=== PATIENT | female | born 1990 | race Caucasian/White ===

== ENCOUNTER 2020-12-25 15:05 | Inpatient (IN) ==
[2020-12-25] MEDS ORDERED: Ondansetron 4 MG/2 ML VIAL IVP PRN (17:53)
[2020-12-25] MEDS ORDERED: Naloxone 0.4 MG/ML INJ IVP PRN (17:53)
[2020-12-25 18:48] LABS: C-Reactive Protein 124 mg/L (Less than 10); Lactate Dehydrogenase 511 Units/L (140-271)
[2020-12-25] MEDS ORDERED: Remdesivir 200 MG in 0.9 % Sodium Chloride 100 ML IVPB ONE (21:00)
[2020-12-25] MEDS: *HR* Enoxaparin 40 MG/0.4 ML SYRINGE SQ SCH (21:32)
[2020-12-25] MEDS: Benzonatate 100 MG CAPSULE PO PRN (21:32)
[2020-12-26] MEDS ORDERED: Melatonin 3 MG TABLET PO ONE (03:00)
[2020-12-26 03:14] LABS: Basophils % 0.2 %; Hematocrit 37.2 % (35.3-44.9); Hemoglobin 11.3 g/dL (11.5-15.4); Immature Granulocytes % 0.4 % (0-4); Lymphocytes # 0.7 K/mcL (0.6-4.6); Lymphocytes % 14.7 %; Mean Corpuscular HGB Conc 30.4 g/dL (31.6-35.5); Mean Corpuscular Hemoglobin 26.3 pg (28.0-33.3); Mean Corpuscular Volume 86.7 fL (83.0-100.0); Mean Platelet Volume 9.7 fL (9.4-12.4); Monocytes # 0.5 K/mcL (0.0-1.3); Monocytes % 9.5 %; Platelet Count 384 K/mcL (140-400); Red Blood Count 4.29 M/mcL (3.82-4.97); Segmented Neutrophils % 75.2 %
[2020-12-26 03:18] LABS: Neutrophils # 3.8 K/mcL (1.6-8.9)
[2020-12-26 03:20] LABS: INR 1.1; Prothrombin Time 13.2 Seconds (9.4-12.1)
[2020-12-26 03:47] LABS: Platelet Estimate Normal (Normal)
[2020-12-26 05:07] LABS: Alanine Aminotransferase 16 Units/L (7-52); Albumin 3.8 g/dL (3.5-5.7); Albumin/Globulin Ratio 1.2 (1.1-2.2); Alkaline Phosphatase 83 Units/L (34-104); Aspartate Amino Transferase 28 Units/L (13-39); BUN/Creatinine Ratio 19 (6-26); Bilirubin,Total 0.4 mg/dL (0.3-1.0); Blood Urea Nitrogen 8 mg/dL (6-20); Calcium 8.6 mg/dL (8.6-10.3); Carbon Dioxide 26 mEq/L (23-29); Chloride 102 mEq/L (98-107); Globulin 3.3 g/dL (2.4-3.5); Glucose 116 mg/dL (70-105); Magnesium 1.7 mg/dL (1.6-2.6); Osmolality,Calculated 285 (280-300); Potassium 3.9 mEq/L (3.5-5.1); Sodium 138 mEq/L (136-145); Total Protein 7.1 g/dL (6.4-8.9); eGFR For African Americans > 60 (> 60); eGFR For Non-African Americans > 60 (> 60)
[2020-12-26] MEDS: *HR* Enoxaparin 40 MG/0.4 ML SYRINGE SQ SCH ×2 (07:34→22:08)
[2020-12-26] MEDS ORDERED: hydrOXYzine pamoate 25 MG CAPSULE PO PRN (07:36)
[2020-12-26] MEDS ORDERED: Furosemide 20 MG/2 ML VIAL IVP SCH (09:00)
[2020-12-26] MEDS: lamoTRIgine 100 MG TABLET PO SCH (09:26)
[2020-12-26] MEDS: BUPRENORPHINE HCL SL SCH ×3 (09:27→17:39)
[2020-12-26] MEDS: NALOXONE HCL SL SCH ×3 (09:27→17:39)
[2020-12-26] MEDS: Cholecalciferol (D-3) 1,000 UNIT (25MCG) TABLET PO SCH (17:39)
[2020-12-26] MEDS: lisinopriL 10 MG TABLET PO SCH (17:39)
[2020-12-26] MEDS: Furosemide 20 MG/2 ML VIAL IVP SCH (22:08)
[2020-12-26] MEDS: Remdesivir 100 MG in 0.9 % Sodium Chloride 100 ML IVPB SCH (22:09)
[2020-12-27 06:19] LABS: Hematocrit 34.1 % (35.3-44.9); Hemoglobin 10.6 g/dL (11.5-15.4); Immature Granulocytes % 0.4 % (0-4); Lymphocytes # 1.6 K/mcL (0.6-4.6); Lymphocytes % 21.4 %; Mean Corpuscular HGB Conc 31.1 g/dL (31.6-35.5); Mean Corpuscular Hemoglobin 27.5 pg (28.0-33.3); Mean Corpuscular Volume 88.3 fL (83.0-100.0); Mean Platelet Volume 9.6 fL (9.4-12.4); Monocytes # 0.8 K/mcL (0.0-1.3); Monocytes % 11.4 %; Neutrophils # 4.9 K/mcL (1.6-8.9); Platelet Count 404 K/mcL (140-400); Red Blood Count 3.86 M/mcL (3.82-4.97); Red Cell Distribution Width 14.1 % (11.5-14.5); Segmented Neutrophils % 66.8 %; White Blood Count 7.4 K/mcL (4.3-11.1)
[2020-12-27 06:26] LABS: INR 1.1; Prothrombin Time 12.2 Seconds (9.4-12.1)
[2020-12-27 06:37] LABS: Alanine Aminotransferase 14 Units/L (7-52); Albumin/Globulin Ratio 1.2 (1.1-2.2); Alkaline Phosphatase 72 Units/L (34-104); Aspartate Amino Transferase 31 Units/L (13-39); BUN/Creatinine Ratio 25 (6-26); Bilirubin,Total 0.4 mg/dL (0.3-1.0); Blood Urea Nitrogen 13 mg/dL (6-20); Calcium 8.9 mg/dL (8.6-10.3); Carbon Dioxide 31 mEq/L (23-29); Chloride 101 mEq/L (98-107); Globulin 3.3 g/dL (2.4-3.5); Glucose 90 mg/dL (70-105); Magnesium 1.9 mg/dL (1.6-2.6); Osmolality,Calculated 284 (280-300); Potassium 4.2 mEq/L (3.5-5.1); Sodium 137 mEq/L (136-145); Total Protein 7.3 g/dL (6.4-8.9); eGFR For African Americans > 60 (> 60); eGFR For Non-African Americans > 60 (> 60)
[2020-12-27] MEDS: Cholecalciferol (D-3) 1,000 UNIT (25MCG) TABLET PO SCH (08:23)
[2020-12-27] MEDS: NALOXONE HCL SL SCH ×3 (08:23→17:23)
[2020-12-27] MEDS: BUPRENORPHINE HCL SL SCH ×3 (08:23→17:23)
[2020-12-27] MEDS: *HR* Enoxaparin 40 MG/0.4 ML SYRINGE SQ SCH ×2 (08:24→21:25)
[2020-12-27] MEDS: lamoTRIgine 100 MG TABLET PO SCH (08:24)
[2020-12-27] MEDS: Furosemide 20 MG/2 ML VIAL IVP SCH ×2 (08:24→21:25)
[2020-12-27] MEDS: lisinopriL 10 MG TABLET PO SCH (08:24)
[2020-12-27] MEDS: Remdesivir 100 MG in 0.9 % Sodium Chloride 100 ML IVPB SCH (21:26)
[2020-12-28 07:18] LABS: Basophils % 0.2 %; Hematocrit 34.9 % (35.3-44.9); Hemoglobin 10.6 g/dL (11.5-15.4); Immature Granulocytes % 0.8 % (0-4); Lymphocytes # 1.5 K/mcL (0.6-4.6); Lymphocytes % 25.8 %; Mean Corpuscular HGB Conc 30.4 g/dL (31.6-35.5); Mean Corpuscular Hemoglobin 26.5 pg (28.0-33.3); Mean Corpuscular Volume 87.3 fL (83.0-100.0); Mean Platelet Volume 9.4 fL (9.4-12.4); Monocytes # 0.9 K/mcL (0.0-1.3); Monocytes % 15.3 %; Neutrophils # 3.4 K/mcL (1.6-8.9); Platelet Count 410 K/mcL (140-400); Red Cell Distribution Width 13.9 % (11.5-14.5); Segmented Neutrophils % 57.9 %; White Blood Count 5.9 K/mcL (4.3-11.1)
[2020-12-28 08:08] LABS: Alanine Aminotransferase 16 Units/L (7-52); Albumin 3.8 g/dL (3.5-5.7); Albumin/Globulin Ratio 1.2 (1.1-2.2); Alkaline Phosphatase 78 Units/L (34-104); Aspartate Amino Transferase 25 Units/L (13-39); BUN/Creatinine Ratio 26 (6-26); Bilirubin,Total 0.4 mg/dL (0.3-1.0); Blood Urea Nitrogen 13 mg/dL (6-20); Calcium 8.7 mg/dL (8.6-10.3); Carbon Dioxide 33 mEq/L (23-29); Chloride 99 mEq/L (98-107); Globulin 3.1 g/dL (2.4-3.5); Glucose 97 mg/dL (70-105); Osmolality,Calculated 288 (280-300); Potassium 3.6 mEq/L (3.5-5.1); Sodium 139 mEq/L (136-145); Total Protein 6.9 g/dL (6.4-8.9); eGFR For African Americans > 60 (> 60); eGFR For Non-African Americans > 60 (> 60)
[2020-12-28] MEDS: *HR* Enoxaparin 40 MG/0.4 ML SYRINGE SQ SCH ×2 (08:15→22:12)
[2020-12-28] MEDS: lisinopriL 10 MG TABLET PO SCH (08:15)
[2020-12-28] MEDS: Furosemide 20 MG/2 ML VIAL IVP SCH (08:15)
[2020-12-28] MEDS: lamoTRIgine 100 MG TABLET PO SCH (08:15)
[2020-12-28] MEDS: Cholecalciferol (D-3) 1,000 UNIT (25MCG) TABLET PO SCH (08:15)
[2020-12-28] MEDS: BUPRENORPHINE HCL SL SCH ×3 (08:44→17:31)
[2020-12-28] MEDS: NALOXONE HCL SL SCH ×3 (08:44→17:31)
[2020-12-28 11:50] LABS: C-Reactive Protein 49 mg/L (Less than 10)
[2020-12-28 12:33] LABS: Albumin 3.8 g/dL (3.5-5.7); Albumin/Globulin Ratio 1.2 (1.1-2.2); Bilirubin,Direct 0.1 mg/dL (0.0-0.2); Bilirubin,Indirect 0.4 mg/dL (0.0-1.0); Bilirubin,Total 0.5 mg/dL (0.3-1.0); Globulin 3.2 g/dL (2.4-3.5)
[2020-12-28 12:37] LABS: INR 1.1; Prothrombin Time 12.4 Seconds (9.4-12.1)
[2020-12-28 13:24] LABS: Hepatitis B Surface Antigen Nonreactive (Nonreactive)
[2020-12-28 13:53] LABS: Hepatitis A Antibody IgM Nonreactive (Nonreactive); Hepatitis B Core IgM Nonreactive (Nonreactive)
[2020-12-28 14:57] LABS: Hepatitis C Virus Antibody Equivocal (Nonreactive)
[2020-12-28] MEDS: Furosemide 40 MG/4 ML VIAL IVP SCH (17:32)
[2020-12-28] MEDS: Remdesivir 100 MG in 0.9 % Sodium Chloride 100 ML IVPB SCH (23:49)
[2020-12-29] MEDS: lamoTRIgine 100 MG TABLET PO SCH (09:35)
[2020-12-29] MEDS: Furosemide 40 MG/4 ML VIAL IVP SCH ×2 (09:35→17:46)
[2020-12-29] MEDS: Cholecalciferol (D-3) 1,000 UNIT (25MCG) TABLET PO SCH (09:36)
[2020-12-29] MEDS: BUPRENORPHINE HCL SL SCH ×3 (09:36→17:46)
[2020-12-29] MEDS: *HR* Enoxaparin 40 MG/0.4 ML SYRINGE SQ SCH ×2 (09:36→20:10)
[2020-12-29] MEDS: NALOXONE HCL SL SCH ×3 (09:36→17:46)
[2020-12-29 12:00] LABS: Basophils % 0.1 %; Hematocrit 37.9 % (35.3-44.9); Hemoglobin 11.8 g/dL (11.5-15.4); Immature Granulocytes % 1.5 % (0-4); Lymphocytes # 1.1 K/mcL (0.6-4.6); Lymphocytes % 12.3 %; Mean Corpuscular HGB Conc 31.1 g/dL (31.6-35.5); Mean Corpuscular Hemoglobin 26.8 pg (28.0-33.3); Mean Corpuscular Volume 85.9 fL (83.0-100.0); Mean Platelet Volume 9.4 fL (9.4-12.4); Monocytes # 0.9 K/mcL (0.0-1.3); Monocytes % 9.6 %; Platelet Count 467 K/mcL (140-400); Red Blood Count 4.41 M/mcL (3.82-4.97); Red Cell Distribution Width 13.7 % (11.5-14.5); Segmented Neutrophils % 76.5 %
[2020-12-29 12:01] LABS: White Blood Count 9.2 K/mcL (4.3-11.1)
[2020-12-29 12:08] LABS: INR 1.2; Prothrombin Time 13.6 Seconds (9.4-12.1)
[2020-12-29 12:20] LABS: Alanine Aminotransferase 14 Units/L (7-52); Albumin/Globulin Ratio 1.2 (1.1-2.2); Alkaline Phosphatase 72 Units/L (34-104); Aspartate Amino Transferase 18 Units/L (13-39); BUN/Creatinine Ratio 29 (6-26); Bilirubin,Total 0.5 mg/dL (0.3-1.0); Blood Urea Nitrogen 14 mg/dL (6-20); Calcium 8.9 mg/dL (8.6-10.3); Carbon Dioxide 33 mEq/L (23-29); Chloride 97 mEq/L (98-107); Globulin 3.4 g/dL (2.4-3.5); Glucose 131 mg/dL (70-105); Osmolality,Calculated 290 (280-300); Potassium 3.4 mEq/L (3.5-5.1); Sodium 139 mEq/L (136-145); Total Protein 7.4 g/dL (6.4-8.9); eGFR For African Americans > 60 (> 60); eGFR For Non-African Americans > 60 (> 60)
[2020-12-29] MEDS: Remdesivir 100 MG in 0.9 % Sodium Chloride 100 ML IVPB SCH (20:11)
[2020-12-30 02:31] LABS: Hemoglobin 12.3 g/dL (11.5-15.4); Mean Corpuscular HGB Conc 31.5 g/dL (31.6-35.5); Mean Corpuscular Hemoglobin 27.2 pg (28.0-33.3); Mean Corpuscular Volume 86.1 fL (83.0-100.0); Mean Platelet Volume 9.3 fL (9.4-12.4); Platelet Count 521 K/mcL (140-400); Red Blood Count 4.53 M/mcL (3.82-4.97); Red Cell Distribution Width 13.6 % (11.5-14.5)
[2020-12-30 02:50] LABS: BUN/Creatinine Ratio 26 (6-26); Blood Urea Nitrogen 14 mg/dL (6-20); Calcium 9.2 mg/dL (8.6-10.3); Carbon Dioxide 34 mEq/L (23-29); Chloride 97 mEq/L (98-107); Glucose 124 mg/dL (70-105); Osmolality,Calculated 292 (280-300); Potassium 3.9 mEq/L (3.5-5.1); Sodium 140 mEq/L (136-145); eGFR For African Americans > 60 (> 60); eGFR For Non-African Americans > 60 (> 60)
[2020-12-30] MEDS: NALOXONE HCL SL SCH ×3 (07:44→16:58)
[2020-12-30] MEDS: BUPRENORPHINE HCL SL SCH ×3 (07:44→16:58)
[2020-12-30] MEDS: Furosemide 40 MG/4 ML VIAL IVP SCH ×2 (07:45→16:58)
[2020-12-30] MEDS: Cholecalciferol (D-3) 1,000 UNIT (25MCG) TABLET PO SCH (07:45)
[2020-12-30] MEDS: lamoTRIgine 100 MG TABLET PO SCH (07:45)
[2020-12-30] MEDS: *HR* Enoxaparin 40 MG/0.4 ML SYRINGE SQ SCH ×2 (07:46→21:12)
[2020-12-30] MEDS: *HR* LORazepam 0.5 MG TABLET PO PRN (10:23)
[2020-12-30] MEDS ORDERED: Melatonin 3 MG TABLET PO ONE (21:06)
[2020-12-31] MEDS: *HR* LORazepam 0.5 MG TABLET PO PRN (04:50)
[2020-12-31] MEDS: lamoTRIgine 100 MG TABLET PO SCH (08:57)
[2020-12-31] MEDS: Cholecalciferol (D-3) 1,000 UNIT (25MCG) TABLET PO SCH (08:57)
[2020-12-31] MEDS: *HR* Enoxaparin 40 MG/0.4 ML SYRINGE SQ SCH ×2 (08:58→22:33)
[2020-12-31] MEDS: NALOXONE HCL SL SCH ×4 (08:58→17:44)
[2020-12-31] MEDS: BUPRENORPHINE HCL SL SCH ×4 (08:58→17:44)
[2020-12-31] MEDS: Furosemide 40 MG/4 ML VIAL IVP SCH ×2 (08:58→17:33)
[2020-12-31] MEDS: *HR* LORazepam 1 MG TABLET PO PRN ×2 (15:00→22:33)
[2021-01-01 03:39] LABS: Hematocrit 41.8 % (35.3-44.9); Hemoglobin 13.4 g/dL (11.5-15.4); Mean Corpuscular HGB Conc 32.1 g/dL (31.6-35.5); Mean Corpuscular Hemoglobin 27.3 pg (28.0-33.3); Mean Corpuscular Volume 85.3 fL (83.0-100.0); Mean Platelet Volume 9.9 fL (9.4-12.4); Platelet Count 467 K/mcL (140-400); Red Cell Distribution Width 13.5 % (11.5-14.5); White Blood Count 10.8 K/mcL (4.3-11.1)
[2021-01-01 03:57] LABS: BUN/Creatinine Ratio 29 (6-26); Blood Urea Nitrogen 14 mg/dL (6-20); Calcium 9.3 mg/dL (8.6-10.3); Carbon Dioxide 32 mEq/L (23-29); Chloride 93 mEq/L (98-107); Glucose 89 mg/dL (70-105); Osmolality,Calculated 280 (280-300); Potassium 3.7 mEq/L (3.5-5.1); Sodium 135 mEq/L (136-145); eGFR For African Americans > 60 (> 60); eGFR For Non-African Americans > 60 (> 60)
[2021-01-01] MEDS: Cholecalciferol (D-3) 1,000 UNIT (25MCG) TABLET PO SCH (08:47)
[2021-01-01] MEDS: lamoTRIgine 100 MG TABLET PO SCH (08:47)
[2021-01-01] MEDS: Furosemide 40 MG/4 ML VIAL IVP SCH ×2 (08:48→18:49)
[2021-01-01] MEDS: BUPRENORPHINE HCL SL SCH ×3 (08:49→18:49)
[2021-01-01] MEDS: *HR* Enoxaparin 40 MG/0.4 ML SYRINGE SQ SCH ×2 (08:49→21:14)
[2021-01-01] MEDS: NALOXONE HCL SL SCH ×3 (08:49→18:49)
[2021-01-01 17:28] LABS: HCV Quant Log NOT DETECTED log IU/mL
[2021-01-01] MEDS: *HR* LORazepam 1 MG TABLET PO PRN (21:13)
[2021-01-02 06:35] LABS: Hematocrit 46.1 % (35.3-44.9); Hemoglobin 14.7 g/dL (11.5-15.4); Mean Corpuscular HGB Conc 31.9 g/dL (31.6-35.5); Mean Corpuscular Hemoglobin 26.5 pg (28.0-33.3); Mean Corpuscular Volume 83.1 fL (83.0-100.0); Mean Platelet Volume 9.6 fL (9.4-12.4); Platelet Count 551 K/mcL (140-400); Red Blood Count 5.55 M/mcL (3.82-4.97); Red Cell Distribution Width 13.2 % (11.5-14.5); White Blood Count 14.9 K/mcL (4.3-11.1)
[2021-01-02 06:40] LABS: BUN/Creatinine Ratio 30 (6-26); Blood Urea Nitrogen 18 mg/dL (6-20); Carbon Dioxide 33 mEq/L (23-29); Chloride 89 mEq/L (98-107); Glucose 133 mg/dL (70-105); Osmolality,Calculated 282 (280-300); Potassium 3.5 mEq/L (3.5-5.1); Sodium 134 mEq/L (136-145); eGFR For African Americans > 60 (> 60); eGFR For Non-African Americans > 60 (> 60)
[2021-01-02] MEDS: Furosemide 40 MG/4 ML VIAL IVP SCH ×2 (09:21→17:28)
[2021-01-02] MEDS: *HR* Enoxaparin 40 MG/0.4 ML SYRINGE SQ SCH ×2 (09:22→22:01)
[2021-01-02] MEDS: *HR* Buprenorphine HCl 8 MG TAB.SUBL SL SCH ×2 (09:25→22:01)
[2021-01-02] MEDS: lamoTRIgine 100 MG TABLET PO SCH (09:25)
[2021-01-02] MEDS: Cholecalciferol (D-3) 1,000 UNIT (25MCG) TABLET PO SCH (09:25)
[2021-01-02] MEDS: *HR* Buprenorphine HCl 2 MG SUBLINGUAL TABLET SL SCH (09:25)
[2021-01-02 10:52] LABS: HCV Quant Interpretation NOT DETECTED (Not Detected)
[2021-01-02] MEDS: *HR* LORazepam 1 MG TABLET PO PRN (22:01)
[2021-01-03 06:27] LABS: Hematocrit 45.4 % (35.3-44.9); Hemoglobin 14.7 g/dL (11.5-15.4); Mean Corpuscular HGB Conc 32.4 g/dL (31.6-35.5); Mean Corpuscular Volume 83.5 fL (83.0-100.0); Mean Platelet Volume 9.7 fL (9.4-12.4); Platelet Count 600 K/mcL (140-400); Red Blood Count 5.44 M/mcL (3.82-4.97); Red Cell Distribution Width 13.2 % (11.5-14.5); White Blood Count 13.3 K/mcL (4.3-11.1)
[2021-01-03] MEDS: Furosemide 40 MG/4 ML VIAL IVP SCH ×2 (07:58→17:17)
[2021-01-03] MEDS: *HR* Buprenorphine HCl 2 MG SUBLINGUAL TABLET SL SCH (08:01)
[2021-01-03] MEDS: Cholecalciferol (D-3) 1,000 UNIT (25MCG) TABLET PO SCH (08:01)
[2021-01-03] MEDS: lamoTRIgine 100 MG TABLET PO SCH (08:02)
[2021-01-03] MEDS: *HR* Buprenorphine HCl 8 MG TAB.SUBL SL SCH ×2 (08:02→21:36)
[2021-01-03] MEDS: *HR* Enoxaparin 40 MG/0.4 ML SYRINGE SQ SCH ×2 (08:02→21:35)
[2021-01-03 09:59] LABS: BUN/Creatinine Ratio 32 (6-26); Blood Urea Nitrogen 19 mg/dL (6-20); Carbon Dioxide 35 mEq/L (23-29); Chloride 87 mEq/L (98-107); Glucose 106 mg/dL (70-105); Osmolality,Calculated 279 (280-300); Potassium 3.3 mEq/L (3.5-5.1); Sodium 133 mEq/L (136-145); eGFR For African Americans > 60 (> 60); eGFR For Non-African Americans > 60 (> 60)
[2021-01-03] MEDS ORDERED: Acetaminophen 325 MG TABLET PO PRN (11:42)
[2021-01-03] MEDS ORDERED: Isovue-370 500 ML BOTTLE IVP ONE (12:22)
[2021-01-03] MEDS: *HR* LORazepam 1 MG TABLET PO PRN (21:36)
[2021-01-03] MEDS: Benzonatate 100 MG CAPSULE PO PRN (21:36)
[2021-01-04 02:16] LABS: Hemoglobin 14.3 g/dL (11.5-15.4); Mean Corpuscular HGB Conc 31.8 g/dL (31.6-35.5); Mean Corpuscular Hemoglobin 26.6 pg (28.0-33.3); Mean Corpuscular Volume 83.8 fL (83.0-100.0); Mean Platelet Volume 9.5 fL (9.4-12.4); Platelet Count 551 K/mcL (140-400); Red Blood Count 5.37 M/mcL (3.82-4.97); Red Cell Distribution Width 12.9 % (11.5-14.5); White Blood Count 13.4 K/mcL (4.3-11.1)
[2021-01-04 02:42] LABS: BUN/Creatinine Ratio 32 (6-26); Blood Urea Nitrogen 20 mg/dL (6-20); Calcium 9.6 mg/dL (8.6-10.3); Carbon Dioxide 34 mEq/L (23-29); Chloride 87 mEq/L (98-107); Glucose 101 mg/dL (70-105); Magnesium 2.3 mg/dL (1.6-2.6); Osmolality,Calculated 275 (280-300); Potassium 4.3 mEq/L (3.5-5.1); Sodium 131 mEq/L (136-145); eGFR For African Americans > 60 (> 60); eGFR For Non-African Americans > 60 (> 60)
[2021-01-04] MEDS: Furosemide 40 MG/4 ML VIAL IVP SCH (08:17)
[2021-01-04] MEDS: *HR* Buprenorphine HCl 2 MG SUBLINGUAL TABLET SL SCH (08:18)
[2021-01-04] MEDS: *HR* Enoxaparin 40 MG/0.4 ML SYRINGE SQ SCH ×2 (08:18→21:05)
[2021-01-04] MEDS: Cholecalciferol (D-3) 1,000 UNIT (25MCG) TABLET PO SCH (08:18)
[2021-01-04] MEDS: lamoTRIgine 100 MG TABLET PO SCH (08:18)
[2021-01-04] MEDS: *HR* Buprenorphine HCl 8 MG TAB.SUBL SL SCH ×2 (08:18→21:05)
[2021-01-04] MEDS: Benzonatate 100 MG CAPSULE PO PRN (21:05)
[2021-01-04] MEDS: *HR* LORazepam 1 MG TABLET PO PRN (21:05)
[2021-01-05 07:20] LABS: Hematocrit 44.9 % (35.3-44.9); Hemoglobin 14.1 g/dL (11.5-15.4); Mean Corpuscular HGB Conc 31.4 g/dL (31.6-35.5); Mean Corpuscular Hemoglobin 26.5 pg (28.0-33.3); Mean Corpuscular Volume 84.4 fL (83.0-100.0); Mean Platelet Volume 9.9 fL (9.4-12.4); Platelet Count 500 K/mcL (140-400); Red Blood Count 5.32 M/mcL (3.82-4.97); White Blood Count 13.1 K/mcL (4.3-11.1)
[2021-01-05 07:42] LABS: BUN/Creatinine Ratio 33 (6-26); Blood Urea Nitrogen 17 mg/dL (6-20); Calcium 9.8 mg/dL (8.6-10.3); Carbon Dioxide 37 mEq/L (23-29); Chloride 89 mEq/L (98-107); Glucose 113 mg/dL (70-105); Osmolality,Calculated 278 (280-300); Potassium 3.9 mEq/L (3.5-5.1); Sodium 133 mEq/L (136-145); eGFR For African Americans > 60 (> 60); eGFR For Non-African Americans > 60 (> 60)
[2021-01-05] MEDS: Furosemide 20 MG TABLET PO SCH (09:29)
[2021-01-05] MEDS: Cholecalciferol (D-3) 1,000 UNIT (25MCG) TABLET PO SCH (09:30)
[2021-01-05] MEDS: *HR* Buprenorphine HCl 2 MG SUBLINGUAL TABLET SL SCH (09:30)
[2021-01-05] MEDS: *HR* Buprenorphine HCl 8 MG TAB.SUBL SL SCH ×2 (09:30→21:54)
[2021-01-05] MEDS: *HR* Enoxaparin 40 MG/0.4 ML SYRINGE SQ SCH ×2 (09:30→21:54)
[2021-01-05] MEDS: lamoTRIgine 100 MG TABLET PO SCH (09:30)
[2021-01-05] MEDS: Benzonatate 100 MG CAPSULE PO PRN (21:54)
[2021-01-05] MEDS: *HR* LORazepam 1 MG TABLET PO PRN (21:54)
[2021-01-06 03:21] LABS: Hemoglobin 13.2 g/dL (11.5-15.4); Mean Corpuscular HGB Conc 31.4 g/dL (31.6-35.5); Mean Corpuscular Hemoglobin 26.6 pg (28.0-33.3); Mean Corpuscular Volume 84.7 fL (83.0-100.0); Mean Platelet Volume 10.4 fL (9.4-12.4); Platelet Count 445 K/mcL (140-400); Red Blood Count 4.96 M/mcL (3.82-4.97); Red Cell Distribution Width 12.7 % (11.5-14.5); White Blood Count 10.5 K/mcL (4.3-11.1)
[2021-01-06 03:42] LABS: BUN/Creatinine Ratio 27 (6-26); Blood Urea Nitrogen 12 mg/dL (6-20); Calcium 9.3 mg/dL (8.6-10.3); Carbon Dioxide 33 mEq/L (23-29); Chloride 92 mEq/L (98-107); Glucose 151 mg/dL (70-105); Osmolality,Calculated 281 (280-300); Potassium 3.6 mEq/L (3.5-5.1); Sodium 134 mEq/L (136-145); eGFR For African Americans > 60 (> 60); eGFR For Non-African Americans > 60 (> 60)
[2021-01-06] MEDS: *HR* Buprenorphine HCl 2 MG SUBLINGUAL TABLET SL SCH (09:09)
[2021-01-06] MEDS: Cholecalciferol (D-3) 1,000 UNIT (25MCG) TABLET PO SCH (09:10)
[2021-01-06] MEDS: *HR* Buprenorphine HCl 8 MG TAB.SUBL SL SCH ×2 (09:10→20:06)
[2021-01-06] MEDS: Furosemide 20 MG TABLET PO SCH (09:10)
[2021-01-06] MEDS: *HR* Enoxaparin 40 MG/0.4 ML SYRINGE SQ SCH ×2 (09:10→20:06)
[2021-01-06] MEDS: lamoTRIgine 100 MG TABLET PO SCH (09:10)
[2021-01-07 06:15] LABS: Basophils % 0.1 %; Eosinophils % 0.3 %; Hematocrit 39.5 % (35.3-44.9); Hemoglobin 12.5 g/dL (11.5-15.4); Immature Granulocytes % 0.4 % (0-4); Lymphocytes # 2.3 K/mcL (0.6-4.6); Lymphocytes % 25.5 %; Mean Corpuscular HGB Conc 31.6 g/dL (31.6-35.5); Mean Corpuscular Hemoglobin 26.9 pg (28.0-33.3); Mean Corpuscular Volume 85.1 fL (83.0-100.0); Mean Platelet Volume 10.5 fL (9.4-12.4); Monocytes # 0.9 K/mcL (0.0-1.3); Neutrophils # 5.9 K/mcL (1.6-8.9); Platelet Count 373 K/mcL (140-400); Red Blood Count 4.64 M/mcL (3.82-4.97); Red Cell Distribution Width 12.6 % (11.5-14.5); Segmented Neutrophils % 63.7 %; White Blood Count 9.2 K/mcL (4.3-11.1)
[2021-01-07 06:58] VITALS: BP 130/81
[2021-01-07] MEDS: *HR* Buprenorphine HCl 2 MG SUBLINGUAL TABLET SL SCH (07:25)
[2021-01-07] MEDS: Cholecalciferol (D-3) 1,000 UNIT (25MCG) TABLET PO SCH (07:25)
[2021-01-07] MEDS: Furosemide 20 MG TABLET PO SCH (07:25)
[2021-01-07] MEDS: *HR* Buprenorphine HCl 8 MG TAB.SUBL SL SCH (07:25)
[2021-01-07] MEDS: lamoTRIgine 100 MG TABLET PO SCH (07:26)
[2021-01-07] MEDS: *HR* Enoxaparin 40 MG/0.4 ML SYRINGE SQ SCH (07:26)
[2021-01-08] MEDS ORDERED: dexAMETHasone 4 MG TABLET PO SCH (09:00)
== END 2021-01-07 10:24 | disposition home or self-care (01) | DRG 137 ==
LOC: 2NENU → SUATTDRO 17:45 → 2NNU 01-03 02:36 → 2NENU 01-06 15:45
PROVIDERS: ADMIT Internal Medicine; ATTEND Family Medicine